=== PATIENT | female | born 1990 | race Caucasian/White ===

== ENCOUNTER 2017-06-03 18:21 | Emergency (ER) | payer OTHER ==
[2017-06-03 19:49] LABS: Bilirubin Negative (Negative); Blood, Urine Trace (Negative); Glucose, Urine (Dipstick) Negative (Negative); Ketone, Urine Trace mg/dL (Negative); Nitrite Negative (Negative); Protein, Urine (Dipstick) Negative (Neg-Trace); Urobilinogen 0.2 mg/dL (0.2-1.0)
[2017-06-03 20:12] LABS: Bacteria/HPF Rare-Few HPF (None Seen); Hyaline Casts/LPF 0-3 HYALINE CAST LPF (0-3 Hyaline); Squamous Epithelial 0-3 HPF (0-3); WBC/HPF 0-3 HPF (0-3)
--- NOTE | 2017-06-03 21:48 | CT ---
NONCONTRAST CT ABDOMEN AND PELVIS: Date: 06-03-17 History: Right sided flank pain. History of kidney stones. Comparison: 08-02-09 FINDINGS: A 6 mm nonobstructing right inferior pole renal calculus with a tiny approximately 2 mm superior carlos e right renal calculus. No additional renal calculi are seen. No left renal calculus seen and there are no ureteral calculi seen bilaterally. There is no hydronephrosis. Previously noted dilated right ureter and right UVJ calculus is no longer visualized. The lung bases, liver, spleen, pancreas, bilateral adrenal glands, and partially distended urinary b ladder as well as uterus demonstrate a grossly normal nonenhanced CT appearance. The appendix is visualized and normal in caliber. No other interval change from prior exam. IMPRESSION: 1. Nonobstructing right renal calculi. 2. No left renal calculus, and no ureteral calculi seen bilaterally. 3. No CT evidence of appendicitis. POS: [facility]
[2017-06-03] MEDS ORDERED: Ketorolac Tromethamine 30 MG/ML VIAL ONE (22:07)
[2017-06-03] MEDS ORDERED: Ondansetron HCl/PF 4 MG/2 ML Vial ONE (22:07)
[2017-06-03 22:27] LABS: #Eosinphils 0.2 thou/uL (0.0-0.7); #Lymphocytes 4.2 thou/uL (1.20-3.40); #Monocytes 0.7 thou/uL (0.11-0.59); #Neutrophils 4.6 thou/uL (1.40-6.50); %Basophils 0.5 % (0.0-1.0); %Eosinophils 2.3 % (0.0-10.0); %Lymphocytes 43.2 % (21.0-51.0); %Monocytes 7.3 % (0.0-10.0); Hematocrit 37.7 % (36.0-47.0); Mean Platelet Volume 7.6 fL (7.4-10.4); Red Blood Cell (RBC) Count 4.04 mill/uL (4.20-5.40); White Blood Cell (WBC) Count 9.7 thou/uL (4.8-10.8)
[2017-06-03 22:56] LABS: Anion Gap 12 mmol/L (10-20); BUN (Urea Nitrogen) 12 mg/dL (7.0-18.7); Calc. Creatinine Clearance 0 mL/min (70-130); Calcium 8.9 mg/dL (7.8-10.44); Carbon Dioxide 22 mmol/L (22-29); Chloride 108 mmol/L (98-107); Estimated GFR-MDRD Greater than 90; Lipase 16 U/L (8-78)
== END 2017-06-03 23:58 | disposition home or self-care (01) ==
LOC: ERS 18:21
DX: R10.9 Unspecified abdominal pain (principal); F17.210 Nicotine dependence, cigarettes, uncomplicated; Z87.442 Personal history of urinary calculi
CPT/HCPCS: 74176; 80048; 81003; 81015; 81025; 83690; 85025; 96361; 96374; 96375; J1885; J2405

== ENCOUNTER 2018-02-13 11:23 | Emergency (ER) | payer OTHER ==
[2018-02-13 12:05] LABS: Bilirubin Negative (Negative); Blood, Urine Negative (Negative); Clarity CLEAR (Clear); Glucose, Urine (Dipstick) Negative (Negative); Leukocyte Negative (Negative); Nitrite Negative (Negative); Protein, Urine (Dipstick) Negative (Neg-Trace); Specific Gravity, Urine 1.022 (1.002-1.036)
[2018-02-13 12:07] LABS: Pregnancy Test - Urine (BHCG) Negative (Negative); Pregu Control Background? CLEAR/WHITE (CLR/WHITE); Pregu Control Bar Appear? YES (CONTROL BAR); Specific Gravity 1.022 (1.002-1.036)
[2018-02-13 12:19] LABS: ALT (SGPT) 11 U/L (8-55); AST (SGOT) 11 U/L (5-34); Albumin 4.8 g/dL (3.5-5.0); Alkaline Phosphatase 60 U/L (40-150); Anion Gap 13 mmol/L (10-20); BUN (Urea Nitrogen) 11 mg/dL (7.0-18.7); Calc. Creatinine Clearance 0 mL/min (70-130); Calcium 9.5 mg/dL (7.8-10.44); Carbon Dioxide 24 mmol/L (22-29); Chloride 105 mmol/L (98-107); Estimated GFR-MDRD Greater than 90; Globulin 2.9 g/dL (2.4-3.5); Glucose 90 mg/dL (70-105); Potassium 3.7 mmol/L (3.5-5.1); Protein, Total 7.7 g/dL (6.0-8.3)
[2018-02-13 12:25] LABS: #Eosinphils 0.1 thou/uL (0.0-0.7); #Lymphocytes 2.3 thou/uL (1.20-3.40); #Monocytes 0.4 thou/uL (0.11-0.59); #Neutrophils 3.9 thou/uL (1.40-6.50); %Basophils 0.7 % (0.0-1.0); %Eosinophils 1.2 % (0.0-10.0); %Lymphocytes 34.5 % (21.0-51.0); %Monocytes 5.3 % (0.0-10.0); %Neutrophils 58.4 % (42.0-75.0); Hemoglobin 13.3 g/dL (12.0-16.0); Mean Corpuscular HGB CONC 33.8 g/dL (32.0-36.0); Mean Corpuscular Hemoglobin 30.9 pg (27.0-31.0); Mean Corpuscular Volume 91.5 fl (81.0-99.0); Mean Platelet Volume 7.9 fL (7.4-10.4); Platelet Count 210 thou/uL (130-400); RBC Distribution Width 12.5 % (11.5-14.5); White Blood Cell (WBC) Count 6.7 thou/uL (4.8-10.8)
[2018-02-13 12:30] LABS: Sodium 138 mmol/L (136-145)
--- NOTE | 2018-02-13 13:01 | CT ---
CT ABDOMEN AND PELVIS WITHOUT CONTRAST STONE PROTOCOL: HISTORY: Right flank pain and nausea x 4 days. History of kidney stones. COMPARISON: Stone protocol study 06/03/17. FINDINGS: There is a small unchanged 4 mm left lower lobe pulmonary nodule. There is a 3 mm right lower lobe p ulmonary nodule. This is near the periphery of the lower segment right lower lobe. There is a calculus inferior pole right renal collecting system measuring up to 5 mm. Punctate calcu carla superior pole right kidney. Low-grade asymmetric dilatation of the right renal pelvis and right ureter without overt hydrouretera l nephrosis. No ureteral calculus is appreciated. No calculus is present on the urinary bladder. The left kidney is without hydronephrosis or nephroureteral lithiasis. No dilated loops of large or small bowel. The appendix is visualized and is normal. No adenopathy. The skeleton is unremarkable. Noncontrast evaluation of the spleen, pancreas, liver, and gallbladder are all unremarkable. IMPRESSION: 1. Nonobstructive calculus in the inferior pole right renal collecting system measuring up to 5-6 mm , similar to the comparison exam. 2. Punctate right superior renal calculus. 3. Unchanged pulmonary nodule of the both lower lobes. 4. Low-grade asymmetry of the right renal collecting system may be sequelae of a recently passed sto ne. No calculus in the right ureter or urinary bladder. 5. Normal appendix. POS: [facility]
[2018-02-13] MEDS ORDERED: Dexamethasone 4 mg/ml Vial ONE (13:32)
[2018-02-13] MEDS ORDERED: Ketorolac Tromethamine 30 MG/ML VIAL ONE (13:32)
== END 2018-02-13 13:45 | disposition home or self-care (01) ==
LOC: ERS 11:23
DX: M54.5 Low back pain (principal); F17.210 Nicotine dependence, cigarettes, uncomplicated
CPT/HCPCS: 36415; 74176; 80053; 81003; 81025; 85025; 96374; 96375; J1100; J1885

== ENCOUNTER 2019-11-05 09:14 | Emergency (ER) | payer OTHER ==
[2019-11-05] MEDS ORDERED: Ketorolac Tromethamine 60 MG/2 ML VIAL ONE (09:40)
[2019-11-05] MEDS ORDERED: Ondansetron PF 4 MG/2 ML Vial ONE ×2 (09:40→12:15)
[2019-11-05 09:53] LABS: #Basophils 0.1 thou/uL (0.0-0.2); #Eosinphils 0.1 thou/uL (0.0-0.7); #Lymphocytes 2.3 thou/uL (1.20-3.40); #Monocytes 0.7 thou/uL (0.11-0.59); #Neutrophils 9.1 thou/uL (1.40-6.50); %Basophils 0.5 % (0.0-1.0); %Eosinophils 1.1 % (0.0-10.0); %Monocytes 5.3 % (0.0-10.0); %Neutrophils 74.1 % (42.0-75.0); Hemoglobin 13.3 g/dL (12.0-16.0); Mean Corpuscular HGB CONC 33.5 g/dL (32.0-36.0); Mean Corpuscular Hemoglobin 31.2 pg (27.0-31.0); Mean Corpuscular Volume 93.2 fL (78.0-98.0); Mean Platelet Volume 7.9 fL (7.4-10.4); Platelet Count 232 thou/uL (130-400); RBC Distribution Width 12.2 % (11.5-14.5); Red Blood Cell (RBC) Count 4.27 mill/uL (4.20-5.40); White Blood Cell (WBC) Count 12.3 thou/uL (4.8-10.8)
[2019-11-05 10:04] LABS: Bilirubin Negative (Negative); Blood, Urine Negative (Negative); Clarity Clear (Clear); Glucose, Urine (Dipstick) Normal (Negative); Leukocyte Negative Leu/uL (Negative); Nitrite Negative (Negative); Protein, Urine (Dipstick) 10 mg/dL (Neg-Trace); Urobilinogen Normal mg/dL (Less than 2)
[2019-11-05 10:14] LABS: ALT (SGPT) 15 U/L (8-55); AST (SGOT) 12 U/L (5-34); Albumin 4.5 g/dL (3.5-5.0); Alkaline Phosphatase 66 U/L (40-110); Anion Gap 12 mmol/L (10-20); BUN (Urea Nitrogen) 11 mg/dL (7.0-18.7); Bilirubin, Total 0.7 mg/dL (0.2-1.2); Calc. Creatinine Clearance 0 mL/min (70-130); Calcium 9.1 mg/dL (7.8-10.44); Carbon Dioxide 24 mmol/L (22-29); Chloride 105 mmol/L (98-107); Estimated GFR-MDRD 87; Globulin 2.9 g/dL (2.4-3.5); Glucose 81 mg/dL (70-105); Lipase 11 U/L (8-78); Potassium 3.9 mmol/L (3.5-5.1); Protein, Total 7.4 g/dL (6.0-8.3); Sodium 137 mmol/L (136-145)
[2019-11-05 10:53] LABS: Pregnancy Test - Urine (BHCG) Negative (Negative); Pregu Control Background? CLEAR/WHITE (CLR/WHITE); Pregu Control Bar Appear? YES (CONTROL BAR); Specific Gravity 1.025 (1.002-1.036)
--- NOTE | 2019-11-05 12:42 | CT ---
EXAM: CT abdomen and pelvis with IV contrast PROVIDED CLINICAL HISTORY: Abdominal pain COMPARISON: 02/13/2018 FINDINGS: The visualized lung bases are free of significant opacity. 2 mm nonobstructing superior pole right renal calculus. The solid abdominal organs demonstrate an oth erwise unremarkable CT appearance. There is no bowel dilatation, inflammatory fat stranding, free fluid or free air apparent. There is n o evidence for appendicitis. No regional lymph node enlargement apparent. The regional major vascular structures appear unremarkable. The osseous structures demonstrate no concerning lytic or blastic lesions. IMPRESSION: No evidence for acute process.
[2019-11-05] MEDS ORDERED: Iopamidol-370 76% 500 ML 1 ML ONE (13:34)
== END 2019-11-05 13:50 | disposition home or self-care (01) ==
LOC: ERS 09:14
DX: R10.9 Unspecified abdominal pain (principal); R10.813 Right lower quadrant abdominal tenderness; F17.210 Nicotine dependence, cigarettes, uncomplicated; Z87.442 Personal history of urinary calculi
CPT/HCPCS: 74177; 80053; 81003; 81025; 83690; 85025; 96361; 96374; 96375; 96376; J1885; J2405; Q9967

== ENCOUNTER 2020-11-16 05:32 | Emergency (ER) | payer OTHER ==
[2020-11-16] MEDS ORDERED: Ketorolac Tromethamine 30 MG/ML VIAL ONE (05:56)
[2020-11-16 06:05] LABS: #Basophils 0.1 thou/uL (0.0-0.2); #Eosinphils 0.3 thou/uL (0.0-0.7); #Lymphocytes 2.8 thou/uL (1.20-3.40); #Monocytes 0.7 thou/uL (0.11-0.59); #Neutrophils 10.2 thou/uL (1.40-6.50); %Basophils 0.8 % (0.0-1.0); %Eosinophils 2.1 % (0.0-10.0); %Monocytes 4.9 % (0.0-10.0); %Neutrophils 72.2 % (42.0-75.0); Hemoglobin 12.2 g/dL (12.0-16.0); Mean Corpuscular HGB CONC 32.4 g/dL (32.0-36.0); Mean Corpuscular Hemoglobin 29.5 pg (27.0-31.0); Mean Corpuscular Volume 91.2 fL (78.0-98.0); Mean Platelet Volume 7.1 fL (7.4-10.4); Platelet Count 352 thou/uL (130-400); RBC Distribution Width 13.7 % (11.5-14.5); Red Blood Cell (RBC) Count 4.14 mill/uL (4.20-5.40); White Blood Cell (WBC) Count 14.1 thou/uL (4.8-10.8)
[2020-11-16] MEDS ORDERED: Ondansetron PF 4 MG/2 ML Vial ONE ×2 (06:12→08:49)
[2020-11-16 06:14] LABS: BHCG - Serum Negative (NEGATIVE); Pregs Control Background? CLEAR/WHITE (CLR/WHITE); Pregs Control Bar Appear? YES (CONTROL BAR)
[2020-11-16 06:27] LABS: ALT (SGPT) 16 U/L (8-55); AST (SGOT) 11 U/L (5-34); Albumin 4.2 g/dL (3.5-5.0); Alkaline Phosphatase 86 U/L (40-110); Anion Gap 14 mmol/L (10-20); BUN (Urea Nitrogen) 9 mg/dL (7.0-18.7); Bilirubin, Total 0.4 mg/dL (0.2-1.2); Calc. Creatinine Clearance 0 mL/min (70-130); Calcium 8.9 mg/dL (7.8-10.44); Carbon Dioxide 24 mmol/L (22-29); Chloride 106 mmol/L (98-107); Glucose 116 mg/dL (70-105); Potassium 3.6 mmol/L (3.5-5.1); Protein, Total 7.2 g/dL (6.0-8.3); Sodium 140 mmol/L (136-145)
[2020-11-16] MEDS ORDERED: Promethazine HCl 25 MG/ML VIAL ONE ×2 (06:55→10:26)
[2020-11-16 09:18] LABS: Bilirubin Negative (Negative); Blood, Urine 3+ (Negative); Clarity Turbid (Clear); Glucose, Urine (Dipstick) Normal (Negative); Ketone, Urine Negative (Negative); Leukocyte Negative Leu/uL (Negative); Nitrite Negative (Negative); Protein, Urine (Dipstick) 30 mg/dL (Neg-Trace); RBC/HPF Greater than 50 HPF (0-3); Specific Gravity, Urine 1.027 (1.002-1.036); Squamous Epithelial 0-3 HPF (0-3); Urobilinogen Normal mg/dL (Less than 2); pH, Urine 5.5 (5.0-9.0)
[2020-11-16 09:24] LABS: Bacteria/HPF 1+ HPF (None Seen)
[2020-11-16 09:25] LABS: Pregnancy Test - Urine (BHCG) Indeterminate (Negative); Pregu Control Background? CLEAR/WHITE (CLR/WHITE); Pregu Control Bar Appear? YES (CONTROL BAR); Specific Gravity 1.027 (1.002-1.036)
== END 2020-11-16 10:49 | disposition home or self-care (01) ==
LOC: ERS 05:32
DX: N13.6 Pyonephrosis (principal); F17.210 Nicotine dependence, cigarettes, uncomplicated
CPT/HCPCS: 74176; 80053; 81003; 81015; 81025; 84703; 85025; 87086; 96374; 96375; 96376; J1885; J2405; J2550